=== PATIENT | male | born 1940 | race Caucasian/White ===

== ENCOUNTER 2022-05-31 09:10 | Emergency (ER) | payer MEDICARE, OTHER ==
[~2022-05-31 09:10] MED LIST: 12 HOUR DECONG120 MG PO; AZITHROMYCIN250 MG PO; CEFDINIR300 MG PO; NORVASC5 MG PO; TOPROL XL 25MG25 MG PO; ZOCOR20 MG PO
[2022-05-31 09:59] LABS: BASOPHIL 0.8 % (0-2); EOSINOPHIL 0.5 % (0-7); HCT 46.3 % (42.0-52.0); HGB 15.2 g/dl (13.2-18.0); LYMPHOCYTE 7.6 % (15-48); MCH 30.1 pg (25.0-31.0); MCHC 32.8 g/dL (32.0-36.0); MCV 91.7 fL (78.0-100.0); MPV 8.4 fL (6.0-9.5); NEUTROPHIL 80.2 % (41-80); NRBC 0; PLT 215 K/uL (150-400); RBC 5.05 M/uL (4.70-6.00); RDW 13.5 % (11.5-14.0); WBC 6.6 K/uL (4.0-10.5)
[2022-05-31 10:26] LABS: BUN/CREAT RATIO (CALC) 10.4 RATIO; CREATININE 1.06 mg/dL (0.67-1.17); POTASSIUM 3.5 mmol/L (3.5-5.1)
[2022-05-31 10:32] LABS: BILIRUBIN NEGATIVE (NEGATIVE); BLOOD NEGATIVE Ery/uL (NEGATIVE); CLARITY CLEAR (CLEAR); COLOR YELLOW (YELLOW); GLUCOSE (U) NORMAL (NORMAL); LEUKOCYTES NEGATIVE Leu/uL (NEGATIVE); NITRITE NEGATIVE (NEGATIVE); PROTEIN NEGATIVE (NEGATIVE); UROBILINOGEN 0.2 mg/dL (0.2-1.0)
== END 2022-05-31 11:29 | disposition home or self-care (01) ==
LOC: FER 09:10
PROVIDERS: Emergency Medicine
DX: U07.1 COVID-19 (principal); I10 Essential (primary) hypertension; E78.5 Hyperlipidemia, unspecified; Z79.899 Other long term (current) drug therapy
CPT/HCPCS: 36415; 71045; 80048; 81003; 85025; 93005; U0002